=== PATIENT | male | born 1995 | race Caucasian/White ===

== ENCOUNTER → 2016-09-13 | Outpatient (CLI) | payer OTHER ==
[2016-09-13 19:03] LABS: ALT 69 U/L (21-72); AST 55 U/L (17-59); Alkaline Phosphatase 118 U/L (38-126); Anion Gap 14 mmol/L; Blood Urea Nitrogen 15 mg/dL (9-20); Calcium 9.9 mg/dL (8.4-10.2); Carbon Dioxide 24 mmol/L (22-30); Chloride 106 mmol/L (98-107); Cholesterol 156 mg/dL (<200); Glucose 113 mg/dL (74-99); HDL Cholesterol 50 mg/dL (40-60); Magnesium 1.8 mg/dL (1.6-2.3); Non-African American GFR(MDRD) >60 (>60 ml/min/1.73 sqM); Potassium 4.2 mmol/L (3.5-5.1); Sodium 144 mmol/L (137-145); Total Bilirubin 0.5 mg/dL (0.2-1.3); Total Protein 7.1 g/dL (6.3-8.2); Triglycerides 212 mg/dL (<150)
[2016-09-13 19:13] LABS: Basophils # (A) 0.1 k/uL (0-0.2); Basophils % (A) 1 %; CH 31.9; CHCM 35.8; Eosinophils # (A) 0.3 k/uL (0-0.7); Eosinophils % (A) 5 %; HCT 43.2 % (39.0-53.0); HGB 15.3 gm/dL (13.0-17.5); Luc # (Auto) 0.16; Luc % (Auto) 2; Lymphocytes % (A) 29 %; MCH 31.7 pg (25.0-35.0); MCHC 35.4 g/dL (31.0-37.0); MCV 89.6 fL (80.0-100.0); Mean Platelet Volume 7.2; Monocytes # (A) 0.4 k/uL (0-1.0); Monocytes % (A) 6 %; Neutrophils # (A) 3.9 k/uL (1.3-7.7); Neutrophils % (A) 57 %; RBC 4.83 m/uL (4.30-5.90); RDW 12.6 % (11.5-15.5); WBC 6.8 k/uL (3.8-10.6); WBC (Perox) 7.09
== END | disposition home or self-care (01) ==
LOC: MMGSC 16:26
PROVIDERS: ATTEND Family Medicine
DX: R07.89 Other chest pain (principal); R00.2 Palpitations
CPT/HCPCS: 36415; 80053; 80061; 83735; 84439; 84443; 85025

== ENCOUNTER 2020-01-21 23:19 | Emergency (ER) | payer OTHER ==
[2020-01-21 23:33] VITALS: BP 117/78; PULSE 59; RESP 18; TEMP 97.8
--- NOTE | 2020-01-21 23:58 | ED ---
Lower Extremity Injury HPI - General Chief Complaint: Extremity Injury, Lower Stated Complaint: Rt Foot Injury, [facility] Time Seen by Provider: 01/21/20 23:36 Source: patient Mode of arrival: ambulatory Limitations: no limitations - History of Present Illness Initial Comments: Patient is a 24-year-old male presenting to emergency Department with complaints of right foot pain since yesterday. Patient states he was moving a large steel object when it slipped off and landed on his right foot just past where the steel in his boots end. Patient states he is able to bear weight but has some pain in the top part of his foot. He denies any previous injuries or surgeries to the right foot. He has no further complaints at this time. - Related Data Allergies Allergy/AdvReac Type Severity Reaction Status Date / Time No Known Allergies Allergy Verified 01/21/20 23:33 Review of Systems ROS Statement: Those systems with pertinent positive or pertinent negative responses have been documented in the HPI. ROS Other: All systems not noted in ROS Statement are negative. Past Medical History Past Medical History: No Reported History History of Any Multi-Drug Resistant Organisms: None Reported Past Surgical History: No Surgical Hx Reported Past Psychological History: No Psychological Hx Reported Smoking Status: Never smoker Past Alcohol Use History: Rare Past Drug Use History: None Reported General Exam - General Exam Comments Initial Comments: GENERAL: Patient is well-developed and well-nourished. Patient is nontoxic and in no acute distress. HEAD: Atraumatic, normocephalic. EYES: Pupils equal round and reactive to light, extraocular movements intact, sclera anicteric, conjunctiva are normal. Eyelids were unremarkable. ENT: TMs normal, nares patent, oropharynx clear without exudates. Moist mucous membranes. NECK: Normal range of motion, supple without lymphadenopathy or JVD. LUNGS: Unlabored respirations. Breath sounds clear to auscultation bilaterally and equal. No wheezes rales or rhonchi. HEART: Regular rate and rhythm without murmurs, rubs or gallops. ABDOMEN: Soft, nontender, normoactive bowel sounds. No guarding, no rebound. No masses appreciated. : Deferred MUSCULOSKELETAL: Patient has some mild pain on palpation of the dorsal aspect of the right foot near the mid foot, lateral area. He has no vascular intact. There is some mild swelling to this area. Normal range of motion of the right ankle and toes. No clubbing or cyanosis. NEUROLOGICAL: Patient is alert and oriented x 3. Normal speech, normal gait. PSYCH: Normal mood, normal affect. SKIN: Warm, Dry, normal turgor, no rashes or lesions noted. Limitations: no limitations Course Vital Signs 01/21/20 23:30 Temperature 97.8 F Pulse Rate 59 L Respiratory 18 Rate Blood Pressure 117/78 O2 Sat by Pulse 100 Oximetry Medical Decision Making - Medical Decision Making Patient is a 24-year-old male here for right foot pain after injury at work yesterday. X-rays of the right foot reveal no acute fractures dislocations. This is most likely a foot contusion. Recommended ice, ibuprofen for discomfort. He can follow up with his PCP if symptoms persist after 1-2 weeks. Disposition Clinical Impression: Right foot pain, Contusion of right foot Disposition: HOME SELF-CARE Condition: Stable Instructions (If sedation given, give patient instructions): Foot Contusion (ED) Additional Instructions: Please return to the Emergency Department if symptoms worsen or any other concerns. X-ray today is negative for fracture. Use ice the foot, Tylenol or ibuprofen for discomfort. Is patient prescribed a controlled substance at d/c from ED?: No Referrals: Floresita Ghosh MD [Primary Care Provider] - 1-2 days
--- NOTE | 2020-01-22 00:12 | XR ---
EXAMINATION TYPE: XR foot complete RT DATE OF EXAM: 01/22/2020 COMPARISON: NONE HISTORY: Foot pain. Trauma. TECHNIQUE: 3 views FINDINGS: Metatarsals are intact. I see no fracture nor dislocation. The toes appear intact. IMPRESSION: Negative right foot exam. No fracture
== END 2020-01-22 00:35 | disposition home or self-care (01) ==
LOC: EC 23:19
DX: S90.31XA Contusion of right foot, initial encounter (principal); W20.8XXA Other cause of strike by thrown, projected or falling object, initial encounter; Y92.69 Other specified industrial and construction area as the place of occurrence of the external cause; Y99.0 Civilian activity done for income or pay
CPT/HCPCS: 99283